=== PATIENT | male | born 1970 | race Caucasian/White ===

== ENCOUNTER 2019-08-20 12:46 | Inpatient (IN) | payer SELFPAY ==
[~2019-08-20] VITALS: Ht 177.8 cm; Wt 181.7 kg
[2019-08-20] MEDS ORDERED: CLINDAMYCIN PHOS 900MG/ 50ML 50 ML IV ONE (13:30)
[2019-08-20] MEDS ORDERED: HYDROCODONE/APAP 10MG-325MG TAB PO NR (13:30)
[2019-08-20 14:12] LABS: BASOPHILS % 0.1 % (0.0-1.0); EOSINOPHILS % 0.1 % (0.0-6.0); HEMATOCRIT 47.8 % (38.2-49.6); HEMOGLOBIN 15.4 g/dL (14.0-18.0); LYMPHOCYTES # (AUTO) 0.7 (1.0-3.2); LYMPHOCYTES % 5.2 % (18.0-39.1); MEAN CORPUSCULAR HEMOGLOBIN 26.4 pg (28-32); MEAN CORPUSCULAR HGB CONC 32.2 g/dL (31-35); MEAN CORPUSCULAR VOLUME 81.8 fL (81-99); MONOCYTES # (AUTO) 0.7 (0.2-0.8); MONOCYTES % 4.9 % (4.4-11.3); NEUTROPHILS # (AUTO) 12.7 (2.1-6.9); NEUTROPHILS % 89.1 % (38.7-80.0); PLATELET COUNT 246 x10e3/uL (140-360); RED BLOOD COUNT 5.84 x10e6/uL (4.3-5.7); RED CELL DISTRIBUTION WIDTH 14.6 % (11.7-14.4)
[2019-08-20 14:51] LABS: ALANINE AMINOTRANSFERASE 33 IU/L (0-55); ALBUMIN 3.1 g/dL (3.5-5.0); ALBUMIN/GLOBULIN RATIO 0.6 (0.8-2.0); ALKALINE PHOSPHATASE 95 IU/L (40-150); ANION GAP 12.4 mmol/L (8-16); BLOOD UREA NITROGEN 9 mg/dL (7-26); BUN/CREATININE RATIO 11 (6-25); CALCIUM 9.3 mg/dL (8.4-10.2); CARBON DIOXIDE 24 mmol/L (22-29); CHLORIDE 95 mmol/L (98-107); CREATININE, SERUM 0.82 mg/dL (0.72-1.25); EST GLOMERULAR FILTRATION RATE > 60 ML/MIN (60-); GLUCOSE 121 mg/dL (74-118); POTASSIUM 4.4 mmol/L (3.5-5.1); SODIUM 127 mmol/L (136-145)
[2019-08-20] MEDS ORDERED: SODIUM CHLORIDE 0.9% 1000ML 1,000 ML IV SCH (15:46)
[2019-08-20] MEDS ORDERED: VANCOMYCIN 1GM/NS 250 ML 250 ML IV SCH (16:00)
[2019-08-20] MEDS ORDERED: ONDANSETRON HCL INJ 2MG/ML 2ML 2 MG/ML VIAL IV PRN ×2 (16:00→18:00)
[2019-08-20] MEDS ORDERED: PIPER-TAZ 3.375 GM 50 ML IV SCH ×2 (16:00→22:00)
[2019-08-20] MEDS ORDERED: SODIUM CHLORIDE 0.9% 1000ML 1,000 ML ONE (16:08)
[2019-08-20] MEDS ORDERED: HYDROCODONE/APAP 10MG-325MG TAB PO PRN (16:45)
[2019-08-20] MEDS: VANCOMYCIN 1GM/NS 250 ML 250 ML IV SCH (17:14)
--- NOTE | 2019-08-20 17:20 | NUR ---
Received patient from ER to room 286, he is in stable condition. at bedside. Admission history and initial assessment completed and documented. Patient oriented to room and policies. Call light within reach. Bed in the lowest position.
[2019-08-20 17:27] VITALS: BP 164/73
[2019-08-20] MEDS ORDERED: MELATONIN 5 MG TABLET PO PRN (17:30)
[2019-08-20] MEDS ORDERED: HYDRALAZINE HCL 20 MG/ML VIAL IV PRN (17:30)
[2019-08-20 17:36] VITALS: BP 164/73
--- NOTE | 2019-08-20 18:38 | History and Physical ---
CHIEF COMPLAINT: Right lower extremity swelling, redness, onset one day. HISTORY OF PRESENT ILLNESS: A 49-year-old morbidly obese male. He reports no past medical history, comes into the ED with worsening right lower extremity redness, cellulitis, ongoing for the last one day. The patient reports that he noticed this yesterday. Warm to touch. No fever. No discharge. Reports maybe having some dog scratches that may have caused this injury to the skin. Denies any fever, cough, congestion, or any chest pain. The patient was evaluated at bedside. He is currently doing well with no other issues at this time. REVIEW OF SYSTEMS: Pertinent positives right lower extremity cellulitis with redness, warm to touch. The rest of 14-point review of systems have been reviewed with the patient and are negative. ALLERGIES: NO KNOWN DRUG ALLERGIES. HOME MEDICATIONS: None. PAST MEDICAL HISTORY: None. PAST SURGICAL HISTORY: Reports none. FAMILY HISTORY: Hypertension, diabetes. SOCIAL HISTORY: No drugs. No alcohol. Does not smoke. Good social support. He is . PHYSICAL EXAMINATION: VITAL SIGNS: Temperature is 97.3, pulse 91, respiratory rate is 18, blood pressure is 134/76, the prior one was 171/97, pulse ox 96% on room air. GENERAL: In no acute distress. Alert and oriented x3. Cooperative on examination. HEENT: Head; normocephalic, atraumatic. Eyes; pupils are equal, round, and reactive to light bilaterally. Extraocular muscles intact bilaterally. Throat; no evidence of erythema or exudates in the posterior pharynx. Has poor dentition. NECK: Supple. Good range of motion. PULMONARY: Clear to auscultation bilaterally. No wheezing, rales, or rhonchi. No crackles appreciated. CARDIOVASCULAR: Positive S1 and S2. No murmurs, rubs, or gallops appreciated. ABDOMEN: Soft, nondistended, nontender to palpation. Bowel sounds present. MUSCULOSKELETAL: Strength is 5/5 throughout. No evidence of any muscle deficits on examination. NEUROLOGIC: Cranial nerve 2 through 12 grossly intact. No evidence of any neurological deficits on exam. SKIN: Intact. Warm to touch. Good cap refill. PSYCHIATRIC: Normal affect and mood. EXTREMITIES: He has right lower extremity warm to touch erythema, swollen, mild tender to palpation. LABORATORY FINDINGS: Show white count 14.2, hemoglobin 15, hematocrit 47, platelets of 246. Chemistry; sodium 127, potassium 4.4, chloride 95, bicarb 24, anion gap of 12, BUN is 9, creatinine is 0.82, glucose 121, calcium 9.3, total bilirubin is 2. LFTs within normal range. Total protein 8.3, albumin is 3.1. MICROBIOLOGY: Blood cultures are pending. IMAGING STUDIES: Venous Doppler has been ordered. IMPRESSION: 1. Right lower extremity cellulitis with erythema, warm to touch. 2. Elevated blood pressure. 3. Mild hyponatremia. 4. Morbidly obese. PLAN: At this time, continue with IV antibiotics. Blood cultures and ID consultation. His sodium level is 127, but it also could be secondary to his body habitus is large, so his sodium level may be lower than expected. At this time, I will discontinue all fluids that were written by the ER physician. The patient will likely auto correct. We will monitor his labs in the morning. He does not take any home medications at this time. We will monitor very closely. As far as his blood pressure, he reports he does not have any elevated blood pressure at home and he does not want to take any med. I will monitor his blood pressure very closely. He does have p.r.n. hydralazine. Put him on Lovenox for DVT prophylaxis. Venous Doppler of the right lower extremity has been ordered. MD NAPOLEON Gregg/MODL /[id number]
--- NOTE | 2019-08-20 19:16 | NUR ---
Bedside shift report given to oncoming nurse. Patient is resting in couch. at bedside. Call light within reach. Bed in the lowest position. Night nurse aware that bariatric bed was ordered for patient.
[2019-08-20 20:00] VITALS: BP 142/69
[2019-08-20 20:14] VITALS: BP 142/69
[2019-08-20] MEDS: CEFEPIME 1GM/NS 0.9% 50 ML 50 ML IV SCH (21:14)
[2019-08-21] VITALS (8 sets, daily range): BP systolic 134–153; BP diastolic 58–68
--- NOTE | 2019-08-21 03:22 | NUR ---
Patient complain of pain to right leg. Refused pain medication.
[2019-08-21] MEDS: CEFEPIME 1GM/NS 0.9% 50 ML 50 ML IV SCH ×3 (05:26→22:18)
[2019-08-21] MEDS: VANCOMYCIN 1GM/NS 250 ML 250 ML IV SCH (05:54)
--- NOTE | 2019-08-21 06:45 | NUR ---
Bedside shift report received from night nurse. Patient is in stable condition. He is resting in recliner, refusing to lay in bariatric bed. IV line to left antecubital is patent.
[2019-08-21 07:06] LABS: ALANINE AMINOTRANSFERASE 28 IU/L (0-55); ALBUMIN 2.6 g/dL (3.5-5.0); ALBUMIN/GLOBULIN RATIO 0.5 (0.8-2.0); ALKALINE PHOSPHATASE 81 IU/L (40-150); ANION GAP 11.1 mmol/L (8-16); BLOOD UREA NITROGEN 8 mg/dL (7-26); BUN/CREATININE RATIO 10 (6-25); CALCIUM 8.9 mg/dL (8.4-10.2); CARBON DIOXIDE 26 mmol/L (22-29); CHLORIDE 95 mmol/L (98-107); EST GLOMERULAR FILTRATION RATE > 60 ML/MIN (60-); GLUCOSE 109 mg/dL (74-118); POTASSIUM 4.1 mmol/L (3.5-5.1); SODIUM 128 mmol/L (136-145)
[2019-08-21 07:21] LABS: BASOPHILS % 0.2 % (0.0-1.0); EOSINOPHILS % 0.2 % (0.0-6.0); HEMATOCRIT 43.4 % (38.2-49.6); LYMPHOCYTES # (AUTO) 1.1 (1.0-3.2); LYMPHOCYTES % 8.6 % (18.0-39.1); MEAN CORPUSCULAR HEMOGLOBIN 26.4 pg (28-32); MEAN CORPUSCULAR HGB CONC 32.3 g/dL (31-35); MEAN CORPUSCULAR VOLUME 81.9 fL (81-99); MONOCYTES % 7.2 % (4.4-11.3); NEUTROPHILS % 83.2 % (38.7-80.0); PLATELET COUNT 248 x10e3/uL (140-360); RED CELL DISTRIBUTION WIDTH 14.6 % (11.7-14.4)
[2019-08-21] MEDS: KETOROLAC TROMETHAMINE 30 MG/ML VIAL IV PRN (10:15)
[2019-08-21] MEDS ORDERED: VANCOMYCIN 750MG/NS 150ML IVPB 250 ML IV SCH (11:45)
--- NOTE | 2019-08-21 11:53 | NUR ---
Per Dr. Gregory patient needs to be on Vancomycin 2gm Q12H. Notified pharmacist. Vanc. trough to be done before 4th dose.
--- NOTE | 2019-08-21 12:45 | Consultation ---
DATE OF CONSULTATION: 08/21/2019 REASON FOR CONSULTATION: Cellulitis of the leg. HISTORY OF PRESENT ILLNESS: This is a morbidly obese patient, 49-year-old who weighs more than 400 pounds, comes in with redness and swelling of his leg. The patient denies any past medical history and denies any past surgical history. PHYSICAL EXAMINATION: GENERAL: He is currently alert, oriented, does not seem to be in acute distress. VITAL SIGNS: Stable, currently afebrile. HEENT: He is not icteric. NECK: Supple. CHEST: Clear. EXTREMITIES: There is erythema and edema on the right leg. IMPRESSION: Cellulitis of the leg. I agree with vancomycin. The patient is morbidly obese. The patient will do cefepime 2 g q.8h due to his weight. Keep the foot elevated, must lose weight. Discussed with the patient. We will follow. MD ORIN Cordova/SELENA /[id number]
[2019-08-21] MEDS: ENOXAPARIN SOD INJ 40 MG/0.4 ML SYR SC SCH (17:16)
[2019-08-21] MEDS: VANCOMYCIN HCL 2 GM in SODIUM CHLORIDE 0.9% 500ML 500 ML IV SCH (17:16)
--- NOTE | 2019-08-21 19:00 | NUR ---
Patient visited in room during nursing rounds. Patient alert and oriented x3. Ambulatory in room prn. Pt currently sitting on bedside recliner per preference. Right lower leg still erythematous and swollen. Redness edges were marked. Pt on IV antibiotic treatment. Pt states minor pain on right leg but denies need for pain med. Call morales within reach. Will monitor closely.
--- NOTE | 2019-08-21 19:20 | NUR ---
Dr. Espinoza came and visited pt in room. aware of pt condition. explained to patient plan of care and that pt still needs to be on IV antibiotics for a while.
--- NOTE | 2019-08-21 19:21 | NUR ---
Bedside shift report given to oncoming nurse. Patient is resting in recliner. No acute distress noted. Call light within reach. Bed in the lowest position.
--- NOTE | 2019-08-21 20:26 | Progress Note ---
DATE: 08/21/2019 SUBJECTIVE: The patient is doing well sitting in the AOTMP-Z-boy chair with no issues. His right lower extremity cellulitis still looks to be very erythematic in nature. PHYSICAL EXAMINATION: VITAL SIGNS: Temperature is 96.7, pulse is 87, respiratory rate is 18, blood pressure 139/58, pulse ox 96% on room air. GENERAL: No acute distress. Alert and oriented x3. Cooperative on examination. HEENT: Head is normocephalic and atraumatic. Eyes: Pupils are equal, round and reactive to light bilaterally. Extraocular movements are intact bilaterally. NECK: Supple. Good range of motion throughout. Throat; no evidence of erythema or exudates in the posterior pharynx. Has poor dentition. PULMONARY: Clear to auscultation bilaterally. No wheezing, rales, or rhonchi. No crackles appreciated. CARDIOVASCULAR: Positive S1 and S2. No murmurs, rubs, or gallops. ABDOMEN: Soft, nondistended, nontender to palpation. Bowel sounds are present. MUSCULOSKELETAL: Strength is 5/5 throughout. No evidence of any muscle deficits on examination. No weakness appreciated. NEUROLOGIC: Cranial nerves 2 through 12 grossly intact. No evidence of any neurological deficits on exam. SKIN: Intact. Warm to touch. Good cap refill. PSYCHIATRIC: Normal affect and mood. EXTREMITIES: He has a right lower extremity cellulitis with erythema. We circled it. It still shows evidence of erythema. Warm to touch, still significant and severe in nature. LABORATORY FINDINGS: Show white count 13.1, hemoglobin 14, hematocrit 43, platelets of 248. Chemistry; sodium 128, potassium 4.1, chloride 95, bicarb 26, anion gap of 11, BUN is 8, creatinine is 0.8. The rest of electrolytes and LFTs within normal range. MICROBIOLOGY: Blood cultures, no growth to date. IMAGING STUDIES: The venous Doppler of right lower extremity preliminarily shows no evidence of DVT. IMPRESSION: 1. Right lower extremity cellulitis. 2. Prehypertension. 3. Mild hyponatremia. 4. Morbidly obese. PLAN: At this time, continue with aggressive IV antibiotic therapy. Blood cultures, no growth today. ID is following. Antibiotics were rearranged by ID. Sodium level is 128. We will monitor this very closely. Get a.m. labs. His blood pressure is stable. Continue to monitor very closely. Venous Doppler of the right lower extremity preliminary shows no evidence of DVT. Continue with Lovenox for DVT prophylaxis. The patient needs to be here a little bit longer with aggressive IV antibiotic therapy. MD NAPOLEON Gregg/MODL /[id number]
[2019-08-22] VITALS (9 sets, daily range): BP systolic 129–162; BP diastolic 60–82
[2019-08-22] MEDS: CEFEPIME 1GM/NS 0.9% 50 ML 50 ML IV SCH ×3 (05:30→22:00)
[2019-08-22 05:51] LABS: BASOPHILS # (AUTO) 0.1 (0.0-0.1); BASOPHILS % 0.4 % (0.0-1.0); EOSINOPHILS # (AUTO) 0.1 (0.0-0.4); HEMATOCRIT 45.4 % (38.2-49.6); HEMOGLOBIN 13.7 g/dL (14.0-18.0); LYMPHOCYTES # (AUTO) 1.9 (1.0-3.2); LYMPHOCYTES % 16.9 % (18.0-39.1); MEAN CORPUSCULAR HEMOGLOBIN 26.1 pg (28-32); MEAN CORPUSCULAR HGB CONC 30.2 g/dL (31-35); MEAN CORPUSCULAR VOLUME 86.6 fL (81-99); MONOCYTES # (AUTO) 1.3 (0.2-0.8); NEUTROPHILS # (AUTO) 8.1 (2.1-6.9); NEUTROPHILS % 70.1 % (38.7-80.0); PLATELET COUNT 264 x10e3/uL (140-360); RED BLOOD COUNT 5.24 x10e6/uL (4.3-5.7); RED CELL DISTRIBUTION WIDTH 14.8 % (11.7-14.4)
[2019-08-22 06:08] LABS: ANION GAP 17.1 mmol/L (8-16); BLOOD UREA NITROGEN 9 mg/dL (7-26); BUN/CREATININE RATIO 12 (6-25); CALCIUM 9.1 mg/dL (8.4-10.2); CARBON DIOXIDE 21 mmol/L (22-29); CHLORIDE 97 mmol/L (98-107); CREATININE, SERUM 0.75 mg/dL (0.72-1.25); EST GLOMERULAR FILTRATION RATE > 60 ML/MIN (60-); GLUCOSE 100 mg/dL (74-118); POTASSIUM 4.1 mmol/L (3.5-5.1); SODIUM 131 mmol/L (136-145)
[2019-08-22] MEDS: VANCOMYCIN HCL 2 GM in SODIUM CHLORIDE 0.9% 500ML 500 ML IV SCH ×2 (06:43→17:39)
--- NOTE | 2019-08-22 08:15 | NUR ---
BEDSIDE SHIFT REPORT RECEIVED FROM THE SCIENCE TEACHER RN. PT IS AAOX3. EDUCATED PT ABOUT FALL PRECAUTIONS. INSTRUCTED PT TO USE CALL LIGHT FOR ALL THE NEEDS. PT VERBALIZED UNDERSTANDING. CALL LIGHT WITH IN EASY REACH. PT IS USING RECLINER INSTEAD OF BED. FAMILY MEMBER AT BEDSIDE. PT DENIES NEEDS AT THIS TIME.
--- NOTE | 2019-08-22 09:00 | NUR ---
PT REFUSED TO WEAR YELLOW SOCKS. NON COMPLAINT WITH FALL PRECAUTIONS.
[2019-08-22] MEDS ORDERED: ONDANSETRON HCL 4 MG ORAL DISINTEGRATING TAB PO PRN (12:00)
--- NOTE | 2019-08-22 14:00 | NUR ---
PT RIGHT LOWER EXTREMITY SWELLING, REDNESS AND DRAINAGE NOTED. DR. MONDRAGON INFORMED. NO NEW ORDERS RECEIVED AT THIS TIME.
--- NOTE | 2019-08-22 15:05 | Progress Note ---
DATE: 08/22/2019 Medicine Progress Note SUBJECTIVE: The patient is doing well. He reports that his right lower extremity redness has passed the borders that were marked in the ER. It does seem to have passed, but the erythema has improved. He is still on high doses of antibiotics and ID is following. PHYSICAL EXAMINATION: VITAL SIGNS: He is afebrile, normotensive. Respiratory rate is good. GENERAL: In no acute distress. Alert and oriented x3. Cooperative on examination. HEENT: Head; normocephalic, atraumatic. Eyes; pupils are equal, round, and reactive to light bilaterally. Extraocular muscles intact bilaterally. Throat; no evidence of erythema or exudates in the posterior pharynx. Has poor dentition. NECK: Supple. Good range of motion. PULMONARY: Clear to auscultation bilaterally. No wheezing, rales, or rhonchi. No crackles appreciated. CARDIOVASCULAR: Positive S1 and S2. No murmurs, rubs, or gallops appreciated. ABDOMEN: Soft, nondistended, nontender to palpation. Bowel sounds present. MUSCULOSKELETAL: Strength is 5/5 throughout. No evidence of any muscle deficits on examination. NEUROLOGIC: Cranial nerve 2 through 12 grossly intact. No evidence of any neurological deficits on exam. SKIN: Intact. Warm to touch. Good cap refill. PSYCHIATRIC: Normal affect and mood. EXTREMITIES: No edema. Good range of motion throughout. LABORATORY DATA: White count 11.5, hemoglobin 13.7, hematocrit is 45, and platelets of 264. Chemistry; sodium 131, potassium 4.1, chloride 97, bicarb 21, anion gap of 17, BUN is 9, creatinine 0.75. Microbiology; blood cultures no growth. IMAGING STUDIES: Venous Doppler preliminary shows no DVT. IMPRESSION: 1. Right lower extremity cellulitis. 2. Prehypertension. 3. Mild hyponatremia. 4. Morbidly obese. PLAN: At this time, continue with aggressive IV antibiotic therapy, being managed by ID. Sodium improved to 131. Diet and exercise discussed with the patient. Venous Doppler of the right lower extremity shows no evidence of DVT. Continue with Lovenox for DVT prophylaxis. Continue with IV antibiotics very aggressively. Discussed plan of care with the patient, the patient's and nursing staff. MD NAPOLEON Gregg/RICHMONDL /[id number]
[2019-08-22] MEDS: ENOXAPARIN SOD INJ 40 MG/0.4 ML SYR SC SCH (17:39)
[2019-08-22] MEDS: KETOROLAC TROMETHAMINE 30 MG/ML VIAL IV PRN (18:28)
--- NOTE | 2019-08-22 19:28 | NUR ---
BEDSIDE SHIFT REPORT GIVEN TO THE HELP DESK MANAGER RN. PT DENIED FURTHER NEEDS.
--- NOTE | 2019-08-22 20:00 | NUR ---
pt received. pt assessed. no ss of distress noted. specialty bed noted. pt in recliner. no co pain at time. left ac iv leaking. iv dc'd catheter tip intact. drsg applied to site. left forearm 20g initiated. pt tolerated well. will cont to follow poc. call morales within reach.
[2019-08-23] VITALS (7 sets, daily range): BP systolic 137–161; BP diastolic 67–78
--- NOTE | 2019-08-23 03:57 | NUR ---
assisted pt to bathroom and back to chair. no ss of distress noted. call morales within reach.
[2019-08-23] MEDS: CEFEPIME 1GM/NS 0.9% 50 ML 50 ML IV SCH ×3 (05:06→21:25)
[2019-08-23] MEDS: VANCOMYCIN HCL 2 GM in SODIUM CHLORIDE 0.9% 500ML 500 ML IV SCH ×2 (05:38→18:26)
[2019-08-23 05:41] LABS: BASOPHILS % 0.3 % (0.0-1.0); EOSINOPHILS # (AUTO) 0.2 (0.0-0.4); EOSINOPHILS % 2.3 % (0.0-6.0); HEMATOCRIT 41.5 % (38.2-49.6); HEMOGLOBIN 13.1 g/dL (14.0-18.0); LYMPHOCYTES # (AUTO) 1.5 (1.0-3.2); MEAN CORPUSCULAR HEMOGLOBIN 26.2 pg (28-32); MEAN CORPUSCULAR HGB CONC 31.6 g/dL (31-35); MONOCYTES # (AUTO) 1.1 (0.2-0.8); MONOCYTES % 11.7 % (4.4-11.3); NEUTROPHILS # (AUTO) 6.1 (2.1-6.9); NEUTROPHILS % 67.7 % (38.7-80.0); PLATELET COUNT 262 x10e3/uL (140-360); RED CELL DISTRIBUTION WIDTH 14.6 % (11.7-14.4)
[2019-08-23 06:01] LABS: ANION GAP 13.7 mmol/L (8-16); BLOOD UREA NITROGEN 7 mg/dL (7-26); BUN/CREATININE RATIO 10 (6-25); CALCIUM 8.8 mg/dL (8.4-10.2); CARBON DIOXIDE 21 mmol/L (22-29); CHLORIDE 101 mmol/L (98-107); EST GLOMERULAR FILTRATION RATE > 60 ML/MIN (60-); GLUCOSE 96 mg/dL (74-118); POTASSIUM 3.7 mmol/L (3.5-5.1); SODIUM 132 mmol/L (136-145)
--- NOTE | 2019-08-23 07:00 | NUR ---
BEDSIDE SHIFT REPORT RECEIVED FROM THE PATTERN FINISHER RN. CALL LIGHT WITH IN EASY REACH. PT DENIES NEEDS AT THIS TIME.
--- NOTE | 2019-08-23 08:00 | NUR ---
PER THE PT, NOT DIABETIC AND NO BLOOD SUGAR CHECK NEEDED.
--- NOTE | 2019-08-23 11:08 | Progress Note ---
DATE: 08/23/2019 SUBJECTIVE: The patient's right lower extremity cellulitis seems to be improving. Pain is less described. PHYSICAL EXAMINATION: VITAL SIGNS: Temperature is 97.7, pulse is 90, respiratory rate 20, blood pressure 137/78, and pulse ox 99% on room air. GENERAL: Not in acute distress, alert and oriented x3. Cooperative on examination. HEENT: Head; normocephalic, atraumatic. Eyes; pupils are equal, round, and reactive to light bilaterally. Extraocular muscles intact bilaterally. NECK: Supple. Good range of motion. Throat; no evidence of erythema or exudates in the posterior pharynx. Has poor dentition. PULMONARY: Clear to auscultation bilaterally. No wheezing, rales, or rhonchi. No crackles appreciated. CARDIOVASCULAR: Positive S1 and S2. No murmurs, rubs or gallops appreciated. ABDOMEN: Soft, nondistended, nontender to palpation. Bowel sounds present. Morbidly obese. MUSCULOSKELETAL: Strength is 5/5 throughout. No evidence of any muscle deficits on examination. No weakness appreciated. SKIN: Right lower extremity erythema, much improved, more pinkish in color, less erythematic, still warm to touch, but is improving. PSYCHIATRIC: Normal affect and mood. EXTREMITIES: As described above with skin. LABORATORY FINDINGS: Show white count 9, hemoglobin 13, hematocrit is 41.5, platelets of 262. Chemistry; sodium 132, potassium 3.7, chloride 101, bicarb 21, anion gap of 13, BUN 7, creatinine is 0.7, glucose is 96, calcium is 8.8. LFTs within normal range. MICROBIOLOGY: Blood cultures, no growth. IMPRESSION: 1. Right lower extremity cellulitis. 2. Hypertension. 3. Mild hyponatremia. 4. Morbidly obese. PLAN: At this time, his cellulitis is improving tremendously. Continue with aggressive IV antibiotic therapy in which ID is monitor very closely. His electrolytes are stable. We will monitor that very closely. Venous Doppler of the lower extremity preliminary shows no evidence of DVT. Continue with Lovenox for DVT prophylaxis. Once his cellulitis improves, which will likely be here a couple more days. He can be discharged home on oral antibiotics. MD NAPOLEON Gregg/SELENA /[id number]
[2019-08-23] MEDS: KETOROLAC TROMETHAMINE 30 MG/ML VIAL IV PRN ×2 (13:43→21:25)
--- NOTE | 2019-08-23 16:00 | NUR ---
PAGED DR. RETANA AND INFORMED PT VITALS HR 108 BP 151/71.
--- NOTE | 2019-08-23 17:00 | NUR ---
CALL BACK FROM DR. RETANA. PER THE DR, PT REFUSED BP MEDS AND CONTINUE MONITOR.
[2019-08-23] MEDS: ENOXAPARIN SOD INJ 40 MG/0.4 ML SYR SC SCH (17:44)
--- NOTE | 2019-08-23 19:00 | NUR ---
BEDSIDE SHIFT REPORT GIVEN TO THE SHUTTLE CAR OPERATOR RN. PT DENIED FURTHER NEEDS.
[2019-08-24] VITALS (8 sets, daily range): BP systolic 135–183; BP diastolic 67–81
[2019-08-24] MEDS: VANCOMYCIN HCL 2 GM in SODIUM CHLORIDE 0.9% 500ML 500 ML IV SCH (05:55)
[2019-08-24] MEDS: CEFEPIME 1GM/NS 0.9% 50 ML 50 ML IV SCH ×3 (05:55→22:46)
[2019-08-24 05:59] LABS: BASOPHILS # (AUTO) 0.1 (0.0-0.1); BASOPHILS % 0.6 % (0.0-1.0); EOSINOPHILS # (AUTO) 0.2 (0.0-0.4); EOSINOPHILS % 2.7 % (0.0-6.0); HEMATOCRIT 42.2 % (38.2-49.6); HEMOGLOBIN 13.5 g/dL (14.0-18.0); LYMPHOCYTES # (AUTO) 1.7 (1.0-3.2); LYMPHOCYTES % 20.6 % (18.0-39.1); MEAN CORPUSCULAR HEMOGLOBIN 26.1 pg (28-32); MEAN CORPUSCULAR VOLUME 81.5 fL (81-99); MONOCYTES # (AUTO) 1.1 (0.2-0.8); MONOCYTES % 13.1 % (4.4-11.3); NEUTROPHILS # (AUTO) 4.9 (2.1-6.9); NEUTROPHILS % 60.8 % (38.7-80.0); PLATELET COUNT 296 x10e3/uL (140-360); RED BLOOD COUNT 5.18 x10e6/uL (4.3-5.7); RED CELL DISTRIBUTION WIDTH 14.5 % (11.7-14.4)
[2019-08-24 06:35] LABS: ANION GAP 10.5 mmol/L (8-16); BLOOD UREA NITROGEN 7 mg/dL (7-26); BUN/CREATININE RATIO 10 (6-25); CALCIUM 8.8 mg/dL (8.4-10.2); CARBON DIOXIDE 24 mmol/L (22-29); CHLORIDE 101 mmol/L (98-107); CREATININE, SERUM 0.68 mg/dL (0.72-1.25); EST GLOMERULAR FILTRATION RATE > 60 ML/MIN (60-); GLUCOSE 107 mg/dL (74-118); POTASSIUM 3.5 mmol/L (3.5-5.1); SODIUM 132 mmol/L (136-145)
--- NOTE | 2019-08-24 07:15 | NUR ---
PATIENT OUT OF BED TO RECLINING CHAIR, NO DISTRESS NOTED. REDNESS AND SWELLING TO RIGHT LEG WITH MULTIPLE WEEPING BLISTERS. CALL LIGHT AT REACH.
[2019-08-24] MEDS: CLINDAMYCIN PHOS 900MG/ 50ML 50 ML IV SCH ×3 (10:23→21:50)
--- NOTE | 2019-08-24 10:43 | NUR ---
WOUND CARE NURSE INITIAL CONSULTATION. 49 YEAR OLD MALE ADMITTED TO [facility] WITH CELLULITIS OF RIGHT LOWER LIMB AND HYPOSMOLALITY. UPON ASSESSMENT PT PRESENTS WITH 3+ PITTING EDEMA TO RLE AND CELLULITIS ONGOING FOR 4 DAYS. VENOUS DOPPLER WAS NEGATIVE FOR DVT. CURRENTLY ON IV ABX. THERE ARE NO OTHER AREAS OF CONCERN ARE NOTED AT THIS TIME. LABS: WBC: 8.02 ALB: 2.6 RECOMMENDATIONS. WASH RIGHT LOWER EXTREMITY WITH SOAP AND WATER. PAT DRY AND APPLY BACTROBAN AND COVER WITH ABD PADS, KERLIX AND TAPE. CHANGE DRESSING BID. THANKS FOR THIS CONSULTATION. Addendum: 08/24/19 at 1050 by Marcia Barreto RN Amended: Links added.
--- NOTE | 2019-08-24 11:26 | NUR ---
PATIENT ASSISTED TO THE RESTROOM AND BACK TO CHAIR. CALL LIGHT AT REACH.
[2019-08-24] MEDS: LOSARTAN POTASSIUM 100 MG TAB PO SCH (14:25)
--- NOTE | 2019-08-24 14:31 | Progress Note ---
DATE: 08/24/2019 Medicine Progress Note SUBJECTIVE: The patient is doing well today. His right lower extremity looks much worse today with worsening erythema, now with some mild clear discharge. PHYSICAL EXAMINATION: VITAL SIGNS: Temperature is 97.6, pulse 91, respiratory rate is 18, blood pressure is 170/72, now started on losartan, and pulse ox is 97% on room air. GENERAL: Not in acute distress. Alert and oriented x3. Cooperative on examination. HEENT: Head; normocephalic, atraumatic. Eyes; pupils are equal, round, and reactive to light bilaterally. Extraocular movements intact bilaterally. Throat; no evidence of erythema or exudates in the posterior pharynx. Has poor dentition. NECK: Supple. Good range of motion. PULMONARY: Clear to auscultation bilaterally. No wheezing, no rales, no rhonchi, no crackles appreciated. CARDIOVASCULAR: Positive S1 and S2. No murmurs, rubs, or gallops appreciated. ABDOMEN: Soft, nondistended, and nontender to palpation. Bowel sounds present. MUSCULOSKELETAL: Strength is 5/5 throughout. No evidence of any muscle deficits on examination. SKIN: Intact. Right lower extremity erythematic worsening and redness. Mild tender to palpation. Does have some weeping now, seems to be much worse today than yesterday. LABORATORY FINDINGS: Show white count 8, hemoglobin 13.5, hematocrit is 42, and platelets of 296. Chemistry; sodium 132, potassium 3.5, chloride 101, bicarb 24, anion gap of 10.5, BUN 7, creatinine is 0.68, glucose is 107, and calcium is 8.8. MICROBIOLOGY: Blood cultures, no growth to date. IMAGING STUDIES: Lower extremity venous Doppler showed no evidence of any DVT in the right lower extremity. IMPRESSION: 1. Right lower extremity cellulitis. 2. Hypertension. 3. Mild hyponatremia. 4. Morbidly obese. PLAN: At this time, I spoke with ID. They did change antibiotics and added now clindamycin and cefepime. He does need aggressive IV antibiotic therapy and not ready for discharge at this time. I discussed this with the patient on several occasions, but despite stating that he still feels like he is ready to go home. At this time, he is not ready for any discharge. He does need aggressive IV antibiotic therapy while here. I did add losartan 100 mg daily, first dose now due to elevated blood pressure reading. Venous Doppler final report shows no evidence of DVT. Continue with Lovenox for DVT prophylaxis. Continue with same plan of care and monitor very closely. He would like to be here several more days, which I discussed this with the patient several times, but he states that he is ready to go home. MD NAPOLEON Gregg/RICHMONDL /[id number]
--- NOTE | 2019-08-24 16:14 | NUR ---
CREAM APPLIED TO RIGHT LEG ORDERED. IN CHAIR WITH CALL LIGHT AT REACH.
[2019-08-24] MEDS ORDERED: MUPIROCIN 2% OINT 22 GM TUBE TOP SCH (17:00)
[2019-08-24] MEDS: ENOXAPARIN SOD INJ 40 MG/0.4 ML SYR SC SCH (17:16)
--- NOTE | 2019-08-24 21:45 | NUR ---
PATIENT RESTING IN RECLINER AOX4, NO SIGNS OF DISTRESS NOTED. DRESSING ON RIGHT LEG HAS BEEN CHANGED AND IS CLEAN, DRY, AND INTACT AND ALSO ELEVATED. IV ANTIBIOTICS ARE RUNNING AT ORDERED RATE AND PATIENT INSTRUCTED TO USE CALL LIGHT FOR ASSISTANCE. CALL LIGHT IS WITHIN EASY REACH, WILL CONTINUE TO MONITOR.
[2019-08-25] VITALS (8 sets, daily range): BP systolic 125–169; BP diastolic 59–80
[2019-08-25] MEDS: CLINDAMYCIN PHOS 900MG/ 50ML 50 ML IV SCH ×4 (05:10→22:25)
[2019-08-25] MEDS: CEFEPIME 1GM/NS 0.9% 50 ML 50 ML IV SCH ×4 (06:00→23:00)
--- NOTE | 2019-08-25 06:42 | NUR ---
Bedside shift report received from night nurse. Patient is resting in bed. No acute distress noted. Call light within reach.
[2019-08-25] MEDS: MUPIROCIN 2% OINT 22 GM TUBE TOP SCH ×2 (07:08→22:25)
[2019-08-25] MEDS: LOSARTAN POTASSIUM 100 MG TAB PO SCH (08:00)
--- NOTE | 2019-08-25 12:27 | NUR ---
Nutrition Screen Note RD Recommendation for Physician: -Continue current diet per MD. Plan of Care: RD following, monitoring for tolerance and adequacy. Education provided. Nutrition reason for involvement: (LOS-early) Primary Diagnose(s): Cellulitis PMH: None. Ht: 70 in Wt: 401 lb BMI: 57.5 kg/m2 IBW:[address] Assessment: (08/24) 49 YOM admitted for cellulitis. Pt was seen resting in his chair, he reported that his appetite has been somewhat poor d/t anxiety and being in the hospital, he denied ONS. The pt denied N/V/C/D/chewing or swallowing issues as well as any food allergies. The pt did report that he did not have a BM in about 4 days but he is not "constipated". LBM: not recorded. Pt was open to receiving education regarding the heart healthy diet. Pt had no other questions or concerns. Chart reviewed. Labs and meds reviewed. Pt has been consuming 25-100% of his meals per FS. Will continue to monitor. Current Diet: cardiac Malnutrition Evaluation (08/24) The patient does not meet criteria for a specified degree of malnutrition at this time. Will re-evaluate at follow-up as appropriate. Diet Education Needs Assessment: Diet education indicated, pt accepted. Diet Adequacy: Meeting calorie needs, Meeting protein needs Learner(s): pt Barriers: none Cultural/Language Modifications: none Readiness: acceptance Method: discussion, handout Topics: hearth healthy diet Understanding/Compliance: verbalized understanding, anticipate fair compliance Nutrition Care Level: Signed: Nikia Dyer RD, REANNA Addendum: 08/25/19 at 1237 by Nikia Dyer DIET -Consider fluid restriction per MD if medically feasible.
--- NOTE | 2019-08-25 14:20 | Progress Note ---
DATE: 08/25/2019 Medicine Progress Note SUBJECTIVE: The patient's right lower extremity cellulitis improved tremendously. Still has some weeping, but the redness has improved. PHYSICAL EXAMINATION: VITAL SIGNS: Temperature 98.4, pulse 85, respiratory rate is 21, blood pressure 132/77, pulse ox 95% on room air. GENERAL: Not in acute distress. Alert and oriented x3. Cooperative on examination. HEENT: Head; normocephalic, atraumatic. Eyes; pupils are equal, round, and reactive to light bilaterally. Extraocular movements intact bilaterally. Throat; no evidence of erythema or exudates in the posterior pharynx. Has poor dentition. NECK: Supple. Good range of motion. PULMONARY: Clear to auscultation bilaterally. No wheezing, no rales, no rhonchi, no crackles appreciated. CARDIOVASCULAR: Positive S1 and S2. No murmurs, rubs, or gallops appreciated. ABDOMEN: Soft, nondistended, and nontender to palpation. Bowel sounds present. MUSCULOSKELETAL: Strength is 5/5 throughout. No evidence of any muscle deficits on examination. No weakness appreciated. NEUROLOGIC: Cranial nerves II through XII grossly intact. No evidence of any neurological deficits on exam. EXTREMITIES: Right lower extremity cellulitis seems to have improved, has wrapping, still has some weeping. We will monitor this very closely. LABORATORY FINDINGS: Show white count 8, hemoglobin 13, hematocrit 42, platelets of 296. Chemistries reviewed and stable. Sodium was 132. Microbiology, nothing. No [id number] blood cultures . IMAGING STUDIES: None. IMPRESSION: 1. Right lower extremity cellulitis. 2. Hypertension. 3. Mild hyponatremia. 4. Morbidly obese. PLAN: At this time, discussed this case with ID. He cleared the patient for discharge on oral clindamycin, for which script has been placed in the chart. I feel like the patient probably needs an additional day despite his right lower extremity has improved tremendously. Continue with daily wrappings. Wound care team is on the case. Continue with antibiotics. As far his blood pressure is much more stable, continue with losartan. Possibly discharge tomorrow the next following day on oral clindamycin as well as oral losartan. Otherwise, I discussed this plan of care with the patient and nursing staff and they verbalized understanding. MD NAPOLEON Gregg/SELENA /[id number]
[2019-08-25] MEDS: ENOXAPARIN SOD INJ 40 MG/0.4 ML SYR SC SCH (16:40)
--- NOTE | 2019-08-25 18:54 | NUR ---
Bedside shift report given to oncoming nurse. Patient is resting in recliner. No acute distress noted at this time. Call light within reach. Bed in the lowest position.
[2019-08-26] VITALS (8 sets, daily range): BP systolic 94–142; BP diastolic 51–69
[2019-08-26] MEDS: CLINDAMYCIN PHOS 900MG/ 50ML 50 ML IV SCH ×4 (04:31→21:20)
[2019-08-26] MEDS: CEFEPIME 1GM/NS 0.9% 50 ML 50 ML IV SCH ×3 (05:05→22:00)
--- NOTE | 2019-08-26 07:26 | NUR ---
PATIENT RESTING WITH EYES CLOSED IN RECLINING CHAIR, NO DISTRESS NOTED. DRESSING TO RIGHT LEG WITH YELLOWISH DRAINAGE. CALL LIGHT AT REACH.
[2019-08-26] MEDS: LOSARTAN POTASSIUM 100 MG TAB PO SCH (09:27)
[2019-08-26] MEDS: MUPIROCIN 2% OINT 22 GM TUBE TOP SCH ×2 (10:20→21:20)
--- NOTE | 2019-08-26 11:11 | NUR ---
DRESSING CHANGED ORDERED, PATIENT SITTING IN RECLINING CHAIR, CALL LIGHT T REACH.
--- NOTE | 2019-08-26 15:09 | Progress Note ---
DATE: 08/26/2019 Medicine Progress Note SUBJECTIVE: The patient's right lower extremity cellulitis seems to have improved. Has some skin peeling. Has some clear discharge from it. His pain is much improved. No other complaints. No overnight events. PHYSICAL EXAMINATION: VITAL SIGNS: Temperature is 96.9, pulse 82, respiratory rate is 22, blood pressure 139/67, and pulse ox 98% on room air. GENERAL: Not in acute distress. Alert and oriented x3. Cooperative on examination. HEENT: Head; normocephalic, atraumatic. Eyes; pupils are equal, round, and reactive to light bilaterally. Extraocular movements intact bilaterally. Throat; no evidence of erythema or exudates in the posterior pharynx. Has poor dentition. NECK: Supple. Good range of motion. PULMONARY: Clear to auscultation bilaterally. No wheezing, no rales, no rhonchi, no crackles appreciated. CARDIOVASCULAR: Positive S1 and S2. No murmurs, rubs, or gallops appreciated. ABDOMEN: Soft, nondistended, and nontender to palpation. Bowel sounds present. MUSCULOSKELETAL: Strength is 5/5 throughout. No evidence of any muscle deficits on examination. No weakness appreciated. NEUROLOGIC: Cranial nerves 2 through 12 grossly intact. No evidence of any neurological deficits on exam. SKIN: Intact. Warm to touch. Good cap refill. PSYCHIATRIC: Normal affect and mood. EXTREMITIES: Right lower extremity, the erythema has improved. Still has some serous clear discharge, currently being wrapped. LABORATORY DATA: CBC none. Chemistry none. IMPRESSION: 1. Right lower extremity cellulitis, improving. 2. Hypertension. 3. Mild hyponatremia. 4. Morbidly obesity. PLAN: At this time, continue with IV antibiotic therapy. He can be discharged on oral clindamycin. He will have daily wrapping changes. It seems to have been improved compared to yesterday. I feel like maybe another day of IV antibiotics would improve much more. I discussed this with the patient and he has agreed with plan of care. Continue dressing changes and antibiotics. He will likely be discharged tomorrow with dressing changes and oral clindamycin. His blood pressure is much improved. Continue with same plan of care and monitor closely. Discussed plan of care with the patient and nursing staff. MD NAPOLEON Gregg/RICHMONDL /[id number]
--- NOTE | 2019-08-26 16:10 | NUR ---
PATIENT ASSISTED WITH SHOWER, BACK IN CHAIR WITH CALL LIGHT AT REACH.
[2019-08-26] MEDS: ENOXAPARIN SOD INJ 40 MG/0.4 ML SYR SC SCH (17:12)
[2019-08-27] VITALS: BP 130/63
[2019-08-27 04:00] VITALS: BP 129/60
[2019-08-27] MEDS: CLINDAMYCIN PHOS 900MG/ 50ML 50 ML IV SCH ×2 (04:00→09:06)
[2019-08-27] MEDS: CEFEPIME 1GM/NS 0.9% 50 ML 50 ML IV SCH (05:20)
[2019-08-27 08:00] VITALS: BP 144/66
[2019-08-27 08:44] VITALS: BP 144/66
[2019-08-27] MEDS: LOSARTAN POTASSIUM 100 MG TAB PO SCH (09:06)
[2019-08-27 12:00] VITALS: BP 129/59
[2019-08-27] MEDS ORDERED: LOSARTAN POTAS100 MG PO (14:09)
[2019-08-27] MEDS ORDERED: CLEOCIN HCL150 MG PO (14:10)
--- NOTE | 2019-08-27 15:46 | NUR ---
patient discharged home, dressing changed on rt leg, prescription given, iv canula removed with tip intact, no ss of infiltration, denies any pain, no distress noted, [facility] him
--- NOTE | 2019-08-27 18:43 | Discharge Summary ---
FINAL DISCHARGE DIAGNOSES: 1. Right lower extremity cellulitis, improving. 2. Hypertension. 3. Mild hyponatremia, resolved. 4. Morbidly obese. CONSULTANTS: Infectious Disease. PHYSICAL EXAMINATION: VITAL SIGNS: Temperature is 96, pulse 78, respiratory rate 22, blood pressure 129/59, pulse ox 98% on room air. LABORATORY FINDINGS: Hemoglobin 13.5, hematocrit 42, platelets of 296. Chemistry, sodium 132, potassium 3.5, chloride 101, bicarb 24, anion gap of 10, BUN 7, creatinine 0.68, calcium is 8.8. LFTs within normal range. Albumin is 2.6. MICROBIOLOGY: Blood cultures were negative. Right lower extremity venous Doppler negative for DVT. HOSPITAL COURSE: This is a 49-year-old male, morbidly obese, came into the ED reportedly stating that his dog had scratched him in his right lower extremity developing a significant cellulitis. The patient was admitted, started on broad-spectrum IV antibiotic therapy. ID was consulted. The patient's right lower extremity cellulitis initially did not improve on IV vancomycin, then antibiotics were rearranged by ID with much improvement in his right lower extremity. Venous Doppler was found to be negative for DVT. The patient was discharged on oral clindamycin as per recommendations by ID with followup in 7 to 10 days in their office. His blood pressure was elevated here, started on losartan with much improved blood pressure readings. On the day of discharge, vital signs were stable, labs reviewed and stable. The patient was seen, evaluated, and examined thoroughly on the day of discharge. No other complaints. The patient verbalized understanding and agrees with plan of care to follow up accordingly as an outpatient with primary care physician in 1 week and ID doctor in 7 to 10 days. The patient has been cleared for discharge by ID. MEDICATIONS: See med reconciliation form including oral clindamycin and losartan, written and placed in the chart. DISPOSITION: Home. CONDITION: Stable. DIET: Heart healthy. In the event of any worsening symptoms, the patient was advised to came back to the ED for further evaluation. Discharge summary took greater than 35 minutes. MD NAPOLEON Gregg/SELENA /[id number]
== END 2019-08-27 15:25 | disposition home or self-care (01) | DRG 603 ==
LOC: ER 12:46 → ERHOLD 15:53 → MED/SURG3 16:57
PROVIDERS: ADMIT Internal Medicine; ATTEND Internal Medicine
DX: L03.115 Cellulitis of right lower limb (principal); E87.1 Hypo-osmolality and hyponatremia; Z68.43 Body mass index [BMI] 50.0-59.9, adult; E66.01 Morbid (severe) obesity due to excess calories; I10 Essential (primary) hypertension
CPT/HCPCS: 36415; 80048; 80053; 80202; 85025; 87040; 93971; 96367; 99251; 99284; J0692; J1650; J1885; J2543; J3370; J7030; J7040

== ENCOUNTER 2022-09-24 13:42 | Inpatient (IN) | payer SELFPAY ==
[~2022-09-24] VITALS: Ht 177.8 cm; Wt 181.4 kg
[~2022-09-24 13:42] MED LIST: CLEOCIN HCL150 MG PO; LOSARTAN POTAS100 MG PO
[2022-09-24] MEDS ORDERED: HYDROCODONE/APAP 5MG-325MG TAB PO PRN (14:30)
[2022-09-24 15:08] LABS: BASOPHILS % 0.2 % (0.0-1.0); EOSINOPHILS # (AUTO) 0.2 (0.0-0.4); EOSINOPHILS % 2.2 % (0.0-6.0); LYMPHOCYTES % 22.3 % (18.0-39.1); MEAN CORPUSCULAR HEMOGLOBIN 24.2 pg (28-32); MEAN CORPUSCULAR VOLUME 80.5 fL (81-99); MONOCYTES # (AUTO) 0.9 (0.2-0.8); MONOCYTES % 9.8 % (4.4-11.3); NEUTROPHILS # (AUTO) 5.7 (2.1-6.9); NEUTROPHILS % 64.9 % (38.7-80.0); PLATELET COUNT 264 x10e3/uL (140-360); RED BLOOD COUNT 6.21 x10e6/uL (4.3-5.7); RED CELL DISTRIBUTION WIDTH 17.6 % (11.7-14.4)
[2022-09-24 15:28] LABS: ALANINE AMINOTRANSFERASE 13 IU/L (0-55); ALBUMIN/GLOBULIN RATIO 0.5 (0.8-2.0); ALKALINE PHOSPHATASE 85 IU/L (40-150); ANION GAP 17.7 mmol/L (8-16); BLOOD UREA NITROGEN 11 mg/dL (7-26); BUN/CREATININE RATIO 13 (6-25); CALCIUM 9.3 mg/dL (8.4-10.2); CARBON DIOXIDE 27 mmol/L (22-29); CHLORIDE 94 mmol/L (98-107); CREATININE, SERUM 0.88 mg/dL (0.72-1.25); GLUCOSE 120 mg/dL (74-118); POTASSIUM 4.7 mmol/L (3.5-5.1); SODIUM 134 mmol/L (136-145)
[2022-09-24] MEDS: Vancomycin IV 2 GM in SODIUM CHLORIDE 0.9% 500ML 500 ML IV SCH (15:57)
[2022-09-24] MEDS ORDERED: SODIUM CHLORIDE FLUSH 10 ML SYR INJ PRN (16:45)
[2022-09-24] MEDS ORDERED: ONDANSETRON HCL INJ 2MG/ML 2ML 2 MG/ML VIAL IV PRN (16:45)
[2022-09-24] MEDS ORDERED: Vancomycin IV 1 GM in SODIUM CHLORIDE 0.9% 250ML 250 ML IV SCH (18:00)
[2022-09-24 20:00] VITALS: BP 149/67
[2022-09-24] MEDS ORDERED: MELATONIN 5 MG TABLET PO PRN (20:45)
[2022-09-24] MEDS ORDERED: HYDRALAZINE HCL 20 MG/ML VIAL IV PRN (20:45)
[2022-09-24] MEDS ORDERED: POTASSIUM CHLORIDE 20 MEQ TAB CR PO PRN (20:45)
[2022-09-24] MEDS ORDERED: DIPHENHYDRAMINE HCL 25 MG CAP PO PRN (20:45)
[2022-09-24] MEDS ORDERED: DEXTROSE 50% SYRINGE 50 ML IV PRN (20:45)
[2022-09-24] MEDS ORDERED: DOCUSATE SODIUM 100 MG CAP PO PRN (20:45)
[2022-09-24] MEDS ORDERED: SIMETHICONE 80 MG CHEW PO PRN (20:45)
[2022-09-24] MEDS ORDERED: BENZONATATE 100 MG CAP PO PRN (20:45)
[2022-09-24] MEDS ORDERED: LIDOCAINE 4% PATCH TP PRN (20:45)
[2022-09-24] MEDS ORDERED: ACETAMINOPHEN 325 MG TAB PO PRN (20:45)
[2022-09-24] MEDS ORDERED: ALBUTEROL/IPRATROPIUM 3 ML NEB NEB PRN (20:45)
[2022-09-24] MEDS ORDERED: IPRATROPIUM BROMIDE 0.02% 2.5 ML NEB NEB PRN (21:30)
[2022-09-24] MEDS ORDERED: ALBUTEROL SULF 0.083% NEB SOLN 3 ML NEB NEB PRN (21:30)
[2022-09-24 22:25] VITALS: BP 121/74
[2022-09-24 22:26] VITALS: BP 121/74
[2022-09-25] VITALS (8 sets, daily range): BP systolic 136–166; BP diastolic 65–77
[2022-09-25] MEDS: Vancomycin IV 2 GM in SODIUM CHLORIDE 0.9% 500ML 500 ML IV SCH ×2 (03:51→14:26)
[2022-09-25 06:23] LABS: BASOPHILS % 0.2 % (0.0-1.0); EOSINOPHILS # (AUTO) 0.3 (0.0-0.4); EOSINOPHILS % 3.1 % (0.0-6.0); HEMATOCRIT 48.7 % (38.2-49.6); HEMOGLOBIN 14.1 g/dL (14.0-18.0); LYMPHOCYTES # (AUTO) 2.1 (1.0-3.2); LYMPHOCYTES % 21.8 % (18.0-39.1); MEAN CORPUSCULAR HEMOGLOBIN 23.8 pg (28-32); MEAN CORPUSCULAR VOLUME 82.3 fL (81-99); MONOCYTES # (AUTO) 0.8 (0.2-0.8); MONOCYTES % 8.3 % (4.4-11.3); NEUTROPHILS # (AUTO) 6.4 (2.1-6.9); NEUTROPHILS % 65.8 % (38.7-80.0); PLATELET COUNT 277 x10e3/uL (140-360); RED BLOOD COUNT 5.92 x10e6/uL (4.3-5.7); RED CELL DISTRIBUTION WIDTH 16.1 % (11.7-14.4)
[2022-09-25 06:43] LABS: ANION GAP 17.3 mmol/L (8-16); CALCIUM 8.8 mg/dL (8.4-10.2); CREATININE, SERUM 0.83 mg/dL (0.72-1.25); PHOSPHORUS 4.3 MG/DL (2.3-4.7); POTASSIUM 4.3 mmol/L (3.5-5.1)
[2022-09-25] MEDS: PANTOPRAZOLE SOD 40 MG TABEC PO SCH (07:30)
[2022-09-25] MEDS ORDERED: SODIUM CHLORIDE 0.9% 250ML 250 ML ONE (09:22)
[2022-09-25] MEDS ORDERED: ENOXAPARIN SOD INJ 40 MG/0.4 ML SYR SC SCH (17:00)
[2022-09-25] MEDS: CEFEPIME 2 GM in SODIUM CHLORIDE 0.9% 100 ML IV SCH (21:34)
[2022-09-26] VITALS (7 sets, daily range): BP systolic 138–165; BP diastolic 70–89
[2022-09-26] MEDS: CEFEPIME 2 GM in SODIUM CHLORIDE 0.9% 100 ML IV SCH ×2 (06:01→13:33)
[2022-09-26] MEDS: PANTOPRAZOLE SOD 40 MG TABEC PO SCH (07:30)
[2022-09-26] MEDS ORDERED: CLINDAMYCIN PHOS 900MG/ 50ML 50 ML IV SCH (13:00)
[2022-09-26] MEDS ORDERED: ONDANSETRON HCL 4 MG ORAL DISINTEGRATING TAB PO PRN (15:00)
== END 2022-09-26 16:56 | disposition home or self-care (01) | DRG 607 ==
LOC: ER 13:56 → ERHOLD 16:37 → MED/SURG3 19:53
PROVIDERS: ADMIT Internal Medicine; ATTEND Internal Medicine
DX: M79.3 Panniculitis, unspecified (principal); L03.311 Cellulitis of abdominal wall; Z68.43 Body mass index [BMI] 50.0-59.9, adult; E66.01 Morbid (severe) obesity due to excess calories; Z91.199 Patient's noncompliance with other medical treatment and regimen due to unspecified reason; B36.8 Other specified superficial mycoses
CPT/HCPCS: 36415; 80048; 80053; 83735; 84100; 85025; 87040; 99284; J0692; J1650; J2543; J7040; J7050

== ENCOUNTER 2022-10-01 23:18 | Inpatient (IN) | payer SELFPAY ==
[~2022-10-01] VITALS: Ht 180.3 cm; Wt 181.4 kg
[2022-10-02] VITALS (7 sets, daily range): BP systolic 123–161; BP diastolic 63–82; PULSE 74–100; RESP 18–20; TEMP 97.4–209.1; O2SAT 95–100
[2022-10-02] MEDS ORDERED: Vancomycin IV 1 GM in SODIUM CHLORIDE 0.9% 250ML 250 ML IV SCH ×2 (00:45→09:00)
[2022-10-02] MEDS ORDERED: FLUCONAZOLE 200 MG/100 ML 100 ML IV SCH ×2 (00:45→09:00)
[2022-10-02 00:47] LABS: BASOPHILS % 0.3 % (0.0-1.0); EOSINOPHILS # (AUTO) 0.3 (0.0-0.4); EOSINOPHILS % 3.2 % (0.0-6.0); HEMATOCRIT 47.6 % (38.2-49.6); HEMOGLOBIN 14.3 g/dL (14.0-18.0); LYMPHOCYTES # (AUTO) 1.5 (1.0-3.2); LYMPHOCYTES % 16.7 % (18.0-39.1); MEAN CORPUSCULAR HEMOGLOBIN 24.3 pg (28-32); MEAN CORPUSCULAR VOLUME 80.8 fL (81-99); MONOCYTES # (AUTO) 0.8 (0.2-0.8); MONOCYTES % 8.3 % (4.4-11.3); NEUTROPHILS # (AUTO) 6.5 (2.1-6.9); NEUTROPHILS % 71.1 % (38.7-80.0); PLATELET COUNT 298 x10e3/uL (140-360); RED BLOOD COUNT 5.89 x10e6/uL (4.3-5.7); RED CELL DISTRIBUTION WIDTH 17.5 % (11.7-14.4)
[2022-10-02 00:51] LABS: INR 1.04; PROTHROMBIN TIME 14.1 seconds (11.9-14.5)
[2022-10-02 00:52] LABS: PARTIAL THROMBOPLASTIN TIME 32.6 seconds (23.8-35.5)
[2022-10-02 00:58] LABS: ALBUMIN 2.8 g/dL (3.5-5.0); ALBUMIN/GLOBULIN RATIO 0.5 (0.8-2.0); ANION GAP 14.5 mmol/L (8-16); CALCIUM 9.1 mg/dL (8.4-10.2); CREATININE, SERUM 0.8 mg/dL (0.72-1.25); POTASSIUM 4.5 mmol/L (3.5-5.1)
[2022-10-02] MEDS ORDERED: ACETAMINOPHEN 325 MG TAB PO PRN (02:30)
[2022-10-02] MEDS ORDERED: ONDANSETRON HCL INJ 2MG/ML 2ML 2 MG/ML VIAL IV PRN (02:30)
[2022-10-02] MEDS ORDERED: SODIUM CHLORIDE 0.9% 250ML 250 ML ONE (10:37)
[2022-10-02 10:45] LABS: BACTERIA,URINE FEW /HPF; CLARITY,URINE CLOUDY (CLEAR); COLOR,URINE YELLOW (YELLOW); EPITHELIAL CELLS,URINE FEW /LPF; KETONES,URINE NEGATIVE (NEGATIVE); LEUKOCYTE ESTERASE ,URINE MODERATE (NEGATIVE); NITRITE,URINE NEGATIVE (NEGATIVE); PROTEIN,URINE DIPSTICK NEGATIVE (NEGATIVE); WBC,URINE (MAN) >50 /HPF (0-5)
[2022-10-02] MEDS: Vancomycin IV 2 GM in SODIUM CHLORIDE 0.9% 500ML 500 ML IV SCH ×2 (13:00→16:12)
[2022-10-02] MEDS ORDERED: DIPHENHYDRAMINE HCL 25 MG CAP PO PRN (14:00)
[2022-10-02] MEDS: NYSTATIN 15 GM POWDER UD BTL TOP SCH (17:32)
[2022-10-02] MEDS: DIPHENHYDRAMINE HCL 25 MG CAP PO PRN (21:02)
[2022-10-02] MEDS: CEFEPIME 2 GM in SODIUM CHLORIDE 0.9% 100 ML IV SCH (21:03)
[2022-10-03] VITALS (9 sets, daily range): BP systolic 117–146; BP diastolic 74–84; PULSE 92–105; RESP 19–22; TEMP 96.9–99.5; O2SAT 95–100
[2022-10-03] MEDS: Vancomycin IV 2 GM in SODIUM CHLORIDE 0.9% 500ML 500 ML IV SCH (00:58)
[2022-10-03] MEDS: CEFEPIME 2 GM in SODIUM CHLORIDE 0.9% 100 ML IV SCH ×2 (05:10→13:43)
[2022-10-03 06:00] LABS: BASOPHILS # (AUTO) 0.1 (0.0-0.1); BASOPHILS % 0.6 % (0.0-1.0); EOSINOPHILS # (AUTO) 0.3 (0.0-0.4); EOSINOPHILS % 1.9 % (0.0-6.0); HEMATOCRIT 48.8 % (38.2-49.6); HEMOGLOBIN 14.5 g/dL (14.0-18.0); LYMPHOCYTES # (AUTO) 1.3 (1.0-3.2); LYMPHOCYTES % 8.2 % (18.0-39.1); MEAN CORPUSCULAR HEMOGLOBIN 24.8 pg (28-32); MEAN CORPUSCULAR HGB CONC 29.7 g/dL (31-35); MEAN CORPUSCULAR VOLUME 83.4 fL (81-99); MONOCYTES # (AUTO) 0.8 (0.2-0.8); MONOCYTES % 5.1 % (4.4-11.3); NEUTROPHILS # (AUTO) 13.5 (2.1-6.9); NEUTROPHILS % 83.8 % (38.7-80.0); PLATELET COUNT 304 x10e3/uL (140-360); RED BLOOD COUNT 5.85 x10e6/uL (4.3-5.7); RED CELL DISTRIBUTION WIDTH 17.6 % (11.7-14.4)
[2022-10-03 06:04] LABS: ALBUMIN 2.5 g/dL (3.5-5.0); ALBUMIN/GLOBULIN RATIO 0.5 (0.8-2.0); ANION GAP 16.2 mmol/L (8-16); CALCIUM 8.8 mg/dL (8.4-10.2); CREATININE, SERUM 0.75 mg/dL (0.72-1.25); POTASSIUM 4.2 mmol/L (3.5-5.1)
[2022-10-03] MEDS: NYSTATIN 15 GM POWDER UD BTL TOP SCH ×2 (09:31→16:12)
[2022-10-03] MEDS ORDERED: ONDANSETRON HCL 4 MG ORAL DISINTEGRATING TAB PO PRN (10:00)
[2022-10-03] MEDS ORDERED: LINEZOLID 600 MG TAB PO SCH (13:30)
[2022-10-03] MEDS ORDERED: METHYLPREDNISOLONE SOD SUCC 40 MG/ML VIAL 1ML IV SCH (17:00)
[2022-10-03] MEDS: LINEZOLID 600 MG TAB PO SCH (21:53)
[2022-10-03] MEDS: DIPHENHYDRAMINE HCL 25 MG CAP PO PRN (21:54)
[2022-10-03] MEDS: ENOXAPARIN SOD INJ 40 MG/0.4 ML SYR SC SCH (21:54)
[2022-10-04] VITALS (9 sets, daily range): BP systolic 117–156; BP diastolic 60–83; PULSE 69–93; RESP 19–21; TEMP 97.1–98.4; O2SAT 95–100
[2022-10-04] MEDS ORDERED: METHYLPREDNISOLONE SOD SUCC 40 MG/ML VIAL 1ML IV SCH (05:00)
[2022-10-04 08:19] LABS: BASOPHILS # (AUTO) 0.1 (0.0-0.1); BASOPHILS % 0.2 % (0.0-1.0); EOSINOPHILS # (AUTO) 0.1 (0.0-0.4); EOSINOPHILS % 0.2 % (0.0-6.0); HEMATOCRIT 46.7 % (38.2-49.6); HEMOGLOBIN 14.5 g/dL (14.0-18.0); LYMPHOCYTES # (AUTO) 0.9 (1.0-3.2); LYMPHOCYTES % 3.1 % (18.0-39.1); MEAN CORPUSCULAR HEMOGLOBIN 24.8 pg (28-32); MEAN CORPUSCULAR VOLUME 79.8 fL (81-99); MONOCYTES # (AUTO) 0.3 (0.2-0.8); MONOCYTES % 0.9 % (4.4-11.3); NEUTROPHILS # (AUTO) 26.7 (2.1-6.9); NEUTROPHILS % 94.5 % (38.7-80.0); PLATELET COUNT 271 x10e3/uL (140-360); RED BLOOD COUNT 5.85 x10e6/uL (4.3-5.7); RED CELL DISTRIBUTION WIDTH 17.5 % (11.7-14.4)
[2022-10-04] MEDS: LINEZOLID 600 MG TAB PO SCH ×2 (08:39→20:00)
[2022-10-04] MEDS: NYSTATIN 15 GM POWDER UD BTL TOP SCH ×2 (08:39→16:09)
[2022-10-04] MEDS: ENOXAPARIN SOD INJ 40 MG/0.4 ML SYR SC SCH ×2 (09:18→20:02)
[2022-10-04 09:59] LABS: ALBUMIN 2.6 g/dL (3.5-5.0); ALBUMIN/GLOBULIN RATIO 0.5 (0.8-2.0); ANION GAP 17.6 mmol/L (8-16); CALCIUM 9.4 mg/dL (8.4-10.2); CREATININE, SERUM 0.85 mg/dL (0.72-1.25); POTASSIUM 4.6 mmol/L (3.5-5.1)
[2022-10-04] MEDS: SODIUM CHLORIDE 1 GM TAB PO SCH ×3 (11:11→16:07)
[2022-10-04 12:33] LABS: NEUTROPHILS % (MANUAL) 100 % (40-74); PLATELET ESTIMATE ADEQUATE; PLATELET MORPHOLOGY COMMENT NORMAL; RBC MORPHOLOGY COMMENT NORMAL
[2022-10-04] MEDS: CEFTRIAXONE 2 GM in SODIUM CHLORIDE 0.9% 100 ML IV SCH (20:01)
[2022-10-04] MEDS: METHYLPREDNISOLONE SOD SUCC 40 MG/ML VIAL 1ML IV SCH (20:01)
[2022-10-04] MEDS ORDERED: SODIUM CHLORIDE 0.9% 100 ML ONE (20:12)
[2022-10-05] VITALS (7 sets, daily range): BP systolic 118–145; BP diastolic 53–80; PULSE 60–102; RESP 18–21; TEMP 97.3–98.9; O2SAT 92–100
[2022-10-05 06:15] LABS: BASOPHILS % 0.2 % (0.0-1.0); EOSINOPHILS % 0.1 % (0.0-6.0); HEMOGLOBIN 14.1 g/dL (14.0-18.0); LYMPHOCYTES # (AUTO) 0.9 (1.0-3.2); LYMPHOCYTES % 3.5 % (18.0-39.1); MEAN CORPUSCULAR HEMOGLOBIN 24.5 pg (28-32); MEAN CORPUSCULAR HGB CONC 30.7 g/dL (31-35); MEAN CORPUSCULAR VOLUME 79.9 fL (81-99); MONOCYTES # (AUTO) 0.6 (0.2-0.8); MONOCYTES % 2.5 % (4.4-11.3); NEUTROPHILS # (AUTO) 23.7 (2.1-6.9); NEUTROPHILS % 92.1 % (38.7-80.0); PLATELET COUNT 323 x10e3/uL (140-360); RED BLOOD COUNT 5.76 x10e6/uL (4.3-5.7); RED CELL DISTRIBUTION WIDTH 17.1 % (11.7-14.4)
[2022-10-05 06:43] LABS: ALBUMIN 2.4 g/dL (3.5-5.0); ALBUMIN/GLOBULIN RATIO 0.5 (0.8-2.0); ANION GAP 12.8 mmol/L (8-16); CALCIUM 9.1 mg/dL (8.4-10.2); CREATININE, SERUM 0.72 mg/dL (0.72-1.25); POTASSIUM 4.8 mmol/L (3.5-5.1)
[2022-10-05] MEDS: SODIUM CHLORIDE 1 GM TAB PO SCH ×3 (08:46→21:05)
[2022-10-05] MEDS: LINEZOLID 600 MG TAB PO SCH ×2 (08:46→20:57)
[2022-10-05] MEDS: METHYLPREDNISOLONE SOD SUCC 40 MG/ML VIAL 1ML IV SCH ×2 (08:46→20:57)
[2022-10-05] MEDS: CEFTRIAXONE 2 GM in SODIUM CHLORIDE 0.9% 100 ML IV SCH ×2 (08:46→20:57)
[2022-10-05] MEDS: NYSTATIN 15 GM POWDER UD BTL TOP SCH ×2 (08:47→16:24)
[2022-10-05] MEDS: ENOXAPARIN SOD INJ 40 MG/0.4 ML SYR SC SCH ×2 (08:47→20:58)
[2022-10-05 09:24] LABS: BAND NEUTROPHILS % (MANUAL) 2 %; LYMPHOCYTES % (MANUAL) 2 % (19-48); MONOCYTES % (MANUAL) 3 % (3.4-9.0); NEUTROPHILS % (MANUAL) 93 % (40-74); PLATELET ESTIMATE ADEQUATE; PLATELET MORPHOLOGY COMMENT NORMAL; RBC MORPHOLOGY COMMENT NORMAL
[2022-10-05 14:29] LABS: ANION GAP 15.3 mmol/L (8-16); CALCIUM 9.5 mg/dL (8.4-10.2); CREATININE, SERUM 0.78 mg/dL (0.72-1.25); POTASSIUM 4.3 mmol/L (3.5-5.1)
[2022-10-06] VITALS (8 sets, daily range): BP systolic 129–153; BP diastolic 67–86; PULSE 88–101; RESP 18–22; TEMP 97.4–98.4; O2SAT 92–100
[2022-10-06 07:14] LABS: BASOPHILS # (AUTO) 0.1 (0.0-0.1); BASOPHILS % 0.5 % (0.0-1.0); EOSINOPHILS % 0.2 % (0.0-6.0); HEMATOCRIT 50.9 % (38.2-49.6); HEMOGLOBIN 15.1 g/dL (14.0-18.0); LYMPHOCYTES # (AUTO) 0.9 (1.0-3.2); LYMPHOCYTES % 6.6 % (18.0-39.1); MEAN CORPUSCULAR HEMOGLOBIN 24.3 pg (28-32); MEAN CORPUSCULAR HGB CONC 29.7 g/dL (31-35); MEAN CORPUSCULAR VOLUME 81.8 fL (81-99); MONOCYTES # (AUTO) 0.3 (0.2-0.8); MONOCYTES % 2.6 % (4.4-11.3); NEUTROPHILS # (AUTO) 11.8 (2.1-6.9); PLATELET COUNT 278 x10e3/uL (140-360); RED BLOOD COUNT 6.22 x10e6/uL (4.3-5.7); RED CELL DISTRIBUTION WIDTH 17.4 % (11.7-14.4)
[2022-10-06 07:32] LABS: ALBUMIN 2.7 g/dL (3.5-5.0); ALBUMIN/GLOBULIN RATIO 0.5 (0.8-2.0); ANION GAP 15.6 mmol/L (8-16); CALCIUM 9.5 mg/dL (8.4-10.2); CREATININE, SERUM 0.79 mg/dL (0.72-1.25); POTASSIUM 4.6 mmol/L (3.5-5.1)
[2022-10-06] MEDS: LINEZOLID 600 MG TAB PO SCH ×2 (09:57→20:33)
[2022-10-06] MEDS: SODIUM CHLORIDE 1 GM TAB PO SCH ×3 (09:57→20:33)
[2022-10-06] MEDS: ENOXAPARIN SOD INJ 40 MG/0.4 ML SYR SC SCH ×2 (09:57→20:37)
[2022-10-06] MEDS: METHYLPREDNISOLONE SOD SUCC 40 MG/ML VIAL 1ML IV SCH ×2 (10:00→20:33)
[2022-10-06] MEDS: CEFTRIAXONE 2 GM in SODIUM CHLORIDE 0.9% 100 ML IV SCH ×2 (10:00→20:33)
[2022-10-06] MEDS: AMLODIPINE BESYLATE 5 MG TAB PO SCH (10:00)
[2022-10-06] MEDS ORDERED: FUROSEMIDE INJ 10 MG/ML 2 ML VIAL IV ONE (11:15)
[2022-10-06 12:19] LABS: FREE THYROXINE INDEX 1.7307 (1.4-3.8); THYROID STIMULATING HORMONE 0.748 uIU/mL (0.350-4.940)
[2022-10-06] MEDS: NYSTATIN 15 GM POWDER UD BTL TOP SCH ×2 (12:22→18:53)
[2022-10-07] VITALS (8 sets, daily range): BP systolic 134–146; BP diastolic 72–85; PULSE 76–108; RESP 17–20; TEMP 97.1–98.3; O2SAT 95–100
[2022-10-07 05:01] LABS: BASOPHILS # (AUTO) 0.1 (0.0-0.1); BASOPHILS % 0.7 % (0.0-1.0); EOSINOPHILS % 0.1 % (0.0-6.0); HEMATOCRIT 49.1 % (38.2-49.6); HEMOGLOBIN 14.8 g/dL (14.0-18.0); LYMPHOCYTES # (AUTO) 0.8 (1.0-3.2); LYMPHOCYTES % 7.4 % (18.0-39.1); MEAN CORPUSCULAR HEMOGLOBIN 24.3 pg (28-32); MEAN CORPUSCULAR HGB CONC 30.1 g/dL (31-35); MEAN CORPUSCULAR VOLUME 80.6 fL (81-99); MONOCYTES # (AUTO) 0.5 (0.2-0.8); MONOCYTES % 4.6 % (4.4-11.3); NEUTROPHILS % 85.8 % (38.7-80.0); PLATELET COUNT 322 x10e3/uL (140-360); RED BLOOD COUNT 6.09 x10e6/uL (4.3-5.7); RED CELL DISTRIBUTION WIDTH 16.5 % (11.7-14.4)
[2022-10-07 05:30] LABS: ALBUMIN 2.7 g/dL (3.5-5.0); ALBUMIN/GLOBULIN RATIO 0.6 (0.8-2.0); ANION GAP 13.6 mmol/L (8-16); CALCIUM 9.2 mg/dL (8.4-10.2); CREATININE, SERUM 0.78 mg/dL (0.72-1.25); POTASSIUM 4.6 mmol/L (3.5-5.1)
[2022-10-07] MEDS: CEFTRIAXONE 2 GM in SODIUM CHLORIDE 0.9% 100 ML IV SCH (10:01)
[2022-10-07] MEDS: AMLODIPINE BESYLATE 5 MG TAB PO SCH (10:02)
[2022-10-07] MEDS: SODIUM CHLORIDE 1 GM TAB PO SCH ×2 (10:02→14:47)
[2022-10-07] MEDS: METHYLPREDNISOLONE SOD SUCC 40 MG/ML VIAL 1ML IV SCH (10:02)
[2022-10-07] MEDS: LINEZOLID 600 MG TAB PO SCH (10:02)
[2022-10-07] MEDS: ENOXAPARIN SOD INJ 40 MG/0.4 ML SYR SC SCH (10:03)
[2022-10-07] MEDS: NYSTATIN 15 GM POWDER UD BTL TOP SCH ×2 (10:03→17:37)
[2022-10-07] MEDS ORDERED: FUROSEMIDE INJ 10 MG/ML 4 ML VIAL IV ONE (11:45)
== END 2022-10-07 20:40 | disposition home or self-care (01) | DRG 603 ==
LOC: ER 23:30 → OBSVTOIN 10-02 02:35 → ERHOLD 10-02 02:35 → MED/SURG2 10-02 03:33
PROVIDERS: ADMIT Family Medicine; ATTEND Family Medicine
DX: L03.311 Cellulitis of abdominal wall (principal); Z68.43 Body mass index [BMI] 50.0-59.9, adult; E22.2 Syndrome of inappropriate secretion of antidiuretic hormone; M79.3 Panniculitis, unspecified; B37.2 Candidiasis of skin and nail; E66.01 Morbid (severe) obesity due to excess calories; R53.81 Other malaise; E65 Localized adiposity; L27.1 Localized skin eruption due to drugs and medicaments taken internally; Z20.822 Contact with and (suspected) exposure to COVID-19
CPT/HCPCS: 0223U; 36415; 80048; 80053; 81001; 82533; 83605; 83935; 84295; 84300; 84436; 84443; 84479; 85025; 85610; 85730; 87040; 87086; 99252; 99283; J0692; J0696; J1450; J1650; J1940; J2543; J2920; J7040; J7050